=== PATIENT | male | born 1985 | race African-American/Black ===

== ENCOUNTER 2016-11-16 15:57 | Emergency (ER) | payer MEDICAID ==
--- NOTE | 2016-11-16 16:52 | ED Physician Chart ---
Chief Complaint/HPI - Patient Information Date Seen:: 11/16/16 Time Seen:: 16:40 Chief Complaint:: abdominal pain History of Present Illness:: Patient developed abdominal pain 2 days ago. He vomited twice 2 days ago and once yesterday. Patient has no diarrhea. 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 Reviewed Review of Systems - Review of Systems General/Constitutional: No fever, No chills Skin: No skin lesions Head: No headache Eyes: No loss of vision ENT: No earache Neck: No neck pain Cardio Vascular: No chest pain, No palpitations, No PND Pulmonary: No SOB GI: Vomiting, Pain G/U: No dysuria, No hematuria Musculoskeletal: No bone or joint pain, No muscle pain Endocrine: No polyuria, No polydipsia Psychiatric: No prior psych history, Other (autism and mental retardation) Hematopoietic: No bruising Allergic/Immuno: No urticaria Neurological: No syncope Past Medical History - Past Medical History Past Medical History: Other (autism and mental retardation) Family History: Other (unavailable) Social History: Non Smoker, No Alcohol, Care Facility Surgical History: None Psychiatricy History: Other (see above) Medication: Reviewed Family Medical History - Family Member Mother History Unknown: Yes Physical Exam - Physical Examination General/Constitutional: Well-developed, well-nourished, Alert, No distress Head: Atraumatic Eyes: Lids, conjuctiva normal, PERRL Skin: Nl inspection, No rash, No skin lesions, No ecchymosis ENMT: External ears, nose nl, Lips, teeth, gums nl Other ENMT comments:: 3 ou of 4 dental plaque Neck: No nuchal rigidity Respiratory: Nl effort/Exclusion, Clear to Auscultation, No Wheeze/Rhonchi/Rales Cardio Vascular: RRR, No murmur, gallop, rubs, NL S1 S2 GI: No tenderness/rebounding/guarding, No organomegaly, No hernia, Nondistended , No mass/bruits : No CVA tenderness Extremities: Normal digits & nails Neuro/Psych: No focal deficits Labs/Radiology/EKG Results - Lab Results Comments:: Laboratory Results - last 24 hr 11/16/16 11/16/16 11/16/16 16:53 16:53 17:00 WBC 7.7 RBC 4.98 Hgb 14.4 Hct 43.0 MCV 86.4 MCH 28.9 MCHC Differential 33.5 RDW 13.2 Plt Count 204 MPV 9.7 Neutrophils % 50.4 Lymphocytes % 41.2 Monocytes % 7.3 Eosinophils % 0.9 Basophils % 0.2 Sodium 136 Potassium 3.4 L Chloride 101 Carbon Dioxide 30.0 Anion Gap 8.4 BUN 12 Creatinine 1.0 Est GFR ( Amer) > 60.0 Est GFR (Non-Af Amer) > 60.0 BUN/Creatinine Ratio 12.0 Glucose 132 H Calcium 9.8 Magnesium 1.9 Lipase 16 Urine Source RANDOM Urine Color YELLOW Urine Clarity CLEAR Urine pH 6.0 Ur Specific Marcellus 1.010 Urine Protein NEGATIVE Urine Glucose (UA) NEGATIVE Urine Ketones NEGATIVE Urine Blood NEGATIVE Urine Nitrate NEGATIVE Urine Bilirubin NEGATIVE Urine Urobilinogen 0.2 Ur Leukocyte Esterase NEGATIVE Urine RBC NONE SEEN Urine WBC 0-2 Ur Epithelial Cells RARE Urine Bacteria NONE SEEN - Radiology Results Results: CT abdomen and pelvis showed a small amount of right lower quadrant fluid with the appendix being obscured. There was also a markedly distended bladder with fullness of the renal collecting system. Assessment - Assessment General Assessment: Patient spontaneously voided about 1000 mL of urine. Patient appears to be holding his urine the reason for which is uncertain. At 1845 patient had no right lower quadrant tenderness or guarding. He continued to complain of epigastric pain. Patient does not meet criteria for admission. ED Septic Shock - . Is Septic Shock (SBP<90, OR Lactate>4 mmol\\L) present?: No - <6hrs of presentation: Vital Signs: Vital Signs - 8 hr 11/16/16 16:20 Temp 98.1 F HR 84 RR 16 BP 139/85 O2 Sat % 96 Reassessment (Disposition) - Reassessment Reassessment Condition:: Improved - Diagnosis Diagnosis:: Gastritis; autism - Aftercare/Follow up Instructions Aftercare/Follow-Up Instructions:: Refer to Discharge Instructions - Patient Disposition Discharge/Transfer:: Home Condition at Disposition:: Stable, Unchanged
[2016-11-16 17:00] LABS: % BASOPHILS 0.2 % (0.0-2.0); % EOSINOPHILS 0.9 % (0.0-5.0); % LYMPHOCYTES 41.2 % (20.0-50.0); % MONOCYTES 7.3 % (2.0-10.0); % NEUTROPHILS 50.4 % (40.0-80.0); HEMOGLOBIN 14.4 gm/dL (13.2-17.3); MEAN CELL VOLUME 86.4 fl (80-99); MEAN CORPUSCULAR HEMOGLOBIN 28.9 pg (26.0-30.0); MEAN CORPUSCULAR HGB CONC 33.5 pg (28.0-36.0); MEAN PLATELET VOLUME 9.7 fl; NEUTROPHILE ABSOLUTE 3.8 Th/cmm (1.8-8.0); PLATELET COUNT 204 Th/cmm (150-400); RED BLOOD COUNT 4.98 Mil/cmm (4.30-5.70); RED CELL DISTRIBUTION WIDTH 13.2 % (11.5-20.0); WHITE BLOOD COUNT 7.7 Th/cmm (4.8-10.8)
[2016-11-16 17:23] LABS: ANION GAP 8.4 (7.0-16.0); BUN - UREA NITROGEN 12 mg/dL (7-25); CALCIUM SERUM 9.8 mg/dL (8.6-10.3); CHLORIDE 101 mEq/L (98-107); GLUCOSE 132 mg/dL (70-105); LIPASE 16 U/L (11-82); MAGNESIUM 1.9 mg/dL (1.9-2.7); POTASSIUM SERUM 3.4 mEq/L (3.5-5.1); SODIUM SERUM 136 mEq/L (136-145)
[2016-11-16 17:45] LABS: URINE BACTERIA NONE SEEN /hpf (NONE SEEN); URINE BILIRUBIN NEGATIVE (NEGATIVE); URINE BLOOD NEGATIVE (NEGATIVE); URINE COLOR YELLOW; URINE EPITHELIAL CELLS RARE /lpf (FEW); URINE GLUCOSE (UA) NEGATIVE (NEGATIVE); URINE KETONE NEGATIVE (NEGATIVE); URINE PROTEIN NEGATIVE (NEGATIVE); URINE RBC NONE SEEN /hpf (0-5); URINE UROBILINOGEN 0.2 E.U./dL (0.2 - 1.0); URINE WBC 0-2 /hpf (0-5)
--- NOTE | 2016-11-17 08:02 | Diagnostic Imaging Report ---
CT abdomen and pelvis without intravenous contrast Indication: Abdominal pain Comparison: None, Technique: Axial images were obtained from the lung bases to the bilateral proximal femurs without IV contrast. Coronal reconstructions were made. total DLP: 660, CTDI12.3 FINDINGS: Hypoventilatory and atelectatic changes of the lung bases are noted. Assessment of the solid organs is limited due to lack of IV contrast. No evidence of focal hepatic, splenic, or pancreatic lesions. No focal adrenal lesions. There is fullness of the bilateral renal collecting systems without evidence of tyrone hydronephrosis. Distended urinary bladder is noted. Moderate amount of stool is noted. Appendix is partially visualized and appears borderline prominent. No significant inflammatory changes identified. No evidence of free fluid or free air. The osseous structures demonstrate no acute abnormalities. IMPRESSION: Partially visualized appendix which appears borderline prominent. Findings are indeterminate. Very early acute appendicitis cannot be completely excluded in the appropriate clinical setting. If indicated short-term follow-up CT with IV and oral contrast may be obtained for further assessment. No evidence of free fluid or free air. Distended urinary bladder with fullness of the bilateral renal collecting systems. No evidence of renal stones.
== END 2016-11-16 19:01 | disposition home or self-care (01) ==
LOC: ER 15:57
DX: K29.70 Gastritis, unspecified, without bleeding (principal); F84.0 Autistic disorder
CPT/HCPCS: 36415-UA; 80048-TC; 81001-TC; 83690-TC; 83735-TC; 85025-TC